=== PATIENT | female | born 1995 | race Caucasian/White ===

== ENCOUNTER 2016-10-01 13:16 | Emergency (ER) | payer BC, OTHER ==
[2016-10-01 13:21] VITALS: BP 122/61
--- NOTE | 2016-10-01 13:52 | RAD ---
INDICATION: Head injury, headache. COMPARISON: There are no prior studies available for comparison. TECHNIQUE: Contiguous axial sections of the brain were obtained from the skull base to the vertex without contrast. FINDINGS: The ventricles, cisterns and sulci are within normal limits. No significant focal abnormality or mass effect is seen. There is no evidence for hemorrhage. No significant focal osseous abnormality is seen. The visualized portion of the paranasal sinuses and mastoid air cells appear clear. IMPRESSION: NO EVIDENCE FOR ACUTE INTRACRANIAL ABNORMALITY.
--- NOTE | 2016-10-01 13:58 | RAD ---
INDICATION: Trauma. COMPARISON: There are no prior studies available for comparison. TECHNIQUE: Contiguous axial sections were obtained from the skull base through the T2 vertebra. Images were reconstructed in the sagittal and coronal planes. FINDINGS: There is straightening of the cervical spine with loss of the normal cervical lordosis. No prevertebral soft tissue swelling or fracture is seen. Disc spaces appear maintained. There is no evidence for spinal canal or neural foraminal narrowing. IMPRESSION: STRAIGHTENING OF THE CERVICAL SPINE, NO EVIDENCE FOR FRACTURE OR SUBLUXATION.
--- NOTE | 2016-10-01 14:51 | ED ---
Head Injury - HPI Summary HPI Summary: Patient slipped on a wet floor four days ago and fell backwards striking her head on the floor. She did not loose consciousness, vomit, have amnesia or neck pain. 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 Unfortunately they did not, so she went to [facility] for evaluation and was referred to the ED due to bruising to the back of her head with the nausea and headaches. She denies vision changes or neurological deficits, but has headaches after several hours of reading. - History Of Current Complaint Chief Complaint: EDHeadInjury Stated Complaint: HEAD INJURY Time Seen by Provider: 10/01/16 14:04 Hx Obtained From: Patient Hx Last Menstrual Period: no periods d/t control Mechanism Of Injury: Fall From A Standing Position Onset/Duration: Started Days Ago - 4, Traumatic, Still Present Onset of Pain: Immediate Severity Currently: Moderate Severity Initially: Moderate Pain Intensity: 4 Location of Head Injury: Occipital Character: Dull, Aching Aggravating Factor(s): Other: - reading Alleviating Factor(s): Rest Associated Signs And Symptoms: Nausea, Headache - Allergies/Home Medications Allergies/Adverse Reactions: Allergies Allergy/AdvReac Type Severity Reaction Status Date / Time Acetaminophen [From Vicodin] Allergy Intermediate Vomiting Verified 10/01/16 13: 18 Hydrocodone [From Vicodin] Allergy Intermediate Vomiting Verified 10/01/16 13:18 Latex Allergy Intermediate Swelling Verified 10/01/16 13:18 Of Face,Lips,& Throat PMH/Surg Hx/FS Hx/Imm Hx Previously Healthy: Yes Endocrine/Hematology History: Denies: Hx Diabetes, Hx Thyroid Disease Cardiovascular History: Denies: Hx Hypertension Respiratory History: Denies: Hx Asthma, Hx Chronic Obstructive Pulmonary Disease (COPD) GI History: Denies: Hx Ulcer - Surgical History Surgery Procedure, Year, and Place: wisdom teeth Infectious Disease History: No Infectious Disease History: Denies: Hx Clostridium Difficile, Hx Hepatitis, Hx Human Immunodeficiency Virus (HIV), Hx of Known/Suspected MRSA, Hx Shingles, Hx Tuberculosis, Hx Known/ Suspected VRE, Traveled Outside the [place] in Last 30 Days - Family History Known Family History: Positive: None - Social History Occupation: Student Lives: Alone Alcohol Use: Occasionally Substance Use Type: Reports: None Smoking Status (MU): Never Smoked Tobacco Review of Systems Negative: Fever Negative: Photophobia, Blurred Vision, Diplopia Negative: Ear Ache Positive: Headache. Negative: Weakness, Paresthesia, Numbness All Other Systems Reviewed And Are Negative: Yes Physical Exam Triage Information Reviewed: Yes Vital Signs On Initial Exam: Initial Vitals Temp Pulse Resp BP Pulse Ox 98.3 F 77 18 122/61 100 10/01/16 13:19 10/01/16 13:19 10/01/16 13:19 10/01/16 13:19 10/01/16 13:19 Vital Signs Reviewed: Yes Appearance: Positive: Well-Appearing, No Pain Distress, Thin Skin: Positive: Warm, Skin Color Reflects Adequate Perfusion, Dry, Soft Head/Face: Positive: Normal Head/Face Inspection Eyes: Positive: EOMI, VIVIANA, Conjunctiva Clear ENT: Positive: Hearing grossly normal, Pharynx normal, TMs normal Neck: Positive: Supple, Nontender, No Lymphadenopathy Respiratory/Lung Sounds: Positive: Breath Sounds Present Cardiovascular: Positive: RRR Musculoskeletal: Negative: Edema Left, Edema Right Neurological: Positive: Sensory/Motor Intact, Alert, Oriented to Person Place, Time, CN Intact II-III, NV Bundle Intact Distally, Normal Gait Psychiatric: Positive: Affect/Mood Appropriate AVPU Assessment: Alert Diagnostics - Vital Signs Vital Signs Temp Pulse Resp BP Pulse Ox 10/01/16 13:19 98.3 F 77 18 122/61 100 - Laboratory Lab Statement: Any lab studies that have been ordered have been reviewed, and results considered in the medical decision making process. - CT No standard instances CT Interpretation: No Acute Changes CT Interpretation Completed By: Radiologist Head Injury Course/Dx - Diagnoses Differential Diagnosis/HQI/PQRI: Cerebral Contusion, Cervical Sprain, Contusion , Hematoma, Laceration, Skull Fracture Provider Diagnoses: Head injury Discharge - Discharge Plan Condition: Stable Disposition: HOME Prescriptions: Ondansetron ODT TAB* [Zofran 4 MG Odt TAB*] 4 mg PO Q6H PRN #16 tab.odt PRN Reason: Nausea Patient Education Materials: Head Injury (ED) Forms: *School Release Referrals: [facility] [Primary Care Provider] - Additional Instructions: Please follow-up as needed with your regular provider.
== END 2016-10-01 14:49 | disposition home or self-care (01) ==
LOC: ED 13:16
DX: S09.90XA Unspecified injury of head, initial encounter (principal); W01.0XXA Fall on same level from slipping, tripping and stumbling without subsequent striking against object, initial encounter; Y92.9 Unspecified place or not applicable; Z88.5 Allergy status to narcotic agent
CPT/HCPCS: 70450; 72125; 99281

== ENCOUNTER 2016-10-07 15:43 | Emergency (ER) | payer BC ==
--- NOTE | 2016-10-07 17:07 | RAD ---
HISTORY: Left flank pain COMPARISONS: None relevant TECHNIQUE: Multiple transverse and longitudinal ultrasound images were obtained of the left kidney using grayscale and color Doppler imaging. FINDINGS: RIGHT KIDNEY: No images are submitted of the right kidney. LEFT KIDNEY: The left kidney is normal in shape, size, contour, and echogenicity. There is no hydronephrosis or nephrolithiasis. The left kidney measures 11.3 x 9.4 x 4.1 cm. BLADDER: No images are submitted of the bladder. AORTA AND IVC: No images are submitted of the vasculature. RETROPERITONEUM: Unremarkable. OTHER: None. IMPRESSION: NO LEFT HYDRONEPHROSIS OR NEPHROLITHIASIS
[2016-10-07 17:16] LABS: Hematocrit 41 % (35-47); Hemoglobin 13.5 g/dl (12.0-16.0); Mean Corpuscular HGB Conc 33 g/dl (31-36); Mean Corpuscular Hemoglobin 29 pg (27-31); Mean Corpuscular Volume 88 fL (80-97); Mean Platelet Volume 9 um3 (7.4-10.4); Red Cell Distribution Width 13 % (10.5-15)
[2016-10-07 17:30] LABS: ALT 9 U/L (7-52); AST 19 U/L (13-39); Albumin 3.7 g/dL (3.2-5.2); Alkaline Phosphatase 72 U/L (34-104); Anion Gap 5 mmol/L (2-11); BUN/Creatinine Ratio 11.3 (8-20); Blood Urea Nitrogen 9 mg/dL (6-24); C Reactive Protein < 1.00 mg/L (< 5.00); CO2 Carbon Dioxide 26 mmol/L (22-32); Chloride 105 mmol/L (101-111); EGFR African American 115.4 (>60); EGFR Non-African American 89.7 (>60); Globulin 2.8 g/dL (2-4); Glucose 73 mg/dL (70-100); Lipase 21 U/L (11.0-82.0); Potassium 3.8 mmol/L (3.5-5.0); Sodium 136 mmol/L (133-145); Total Protein 6.5 g/dL (6.4-8.9)
[2016-10-07 18:37] LABS: Urine Bilirubin Negative (Negative); Urine Glucose Negative (Negative); Urine Nitrite Negative (Negative)
[2016-10-07] MEDS ORDERED: Sucralfate TAB* 1 GM PO ONE (19:05)
--- NOTE | 2016-10-07 19:30 | RAD ---
CLINICAL HISTORY: Left flank pain COMPARISON: April 29, 2014 TECHNIQUE: Multiple contiguous axial CT scans were obtained of the abdomen and pelvis, without intravenous contrast enhancement. Coronal and sagittal multiplanar reformations are submitted for review. Oral contrast was not administered. FINDINGS: The study is limited by the lack of intravenous contrast. This limits evaluation of the solid organs and vasculature. LUNG BASES: The lung bases are clear. LIVER: The liver is normal in shape, size, contour, and attenuation. BILE DUCTS: There is no intrahepatic or extrahepatic biliary dilatation. GALLBLADDER: The gallbladder is incompletely distended and is not well evaluated. PANCREAS: The pancreas is normal, without mass or ductal dilatation. SPLEEN: Normal in size and appearance. UPPER GI TRACT: Evaluation of the gastrointestinal tract is limited by incomplete gastric distention. The upper GI tract is unremarkable. SMALL BOWEL AND MESENTERY: The small bowel is normal in contour, course, and caliber. There is no obstruction or dilatation. COLON: The colon is normal in contour, course, caliber. There is no pericolonic inflammatory change. There is a tubular, vermiform, hollow viscus that is blind ending, and originates from the cecum, consistent with a normal appendix. There is no periappendiceal inflammatory change. This is best seen on axial images 119 through 129 ADRENALS: Normal bilaterally. KIDNEYS: The kidneys are normal in shape, size, contour, and axis. There is no hydronephrosis or nephrolithiasis. BLADDER: The bladder is smooth in contour. PELVIC ORGANS: The uterus and adnexa are grossly normal for technique. There is a small amount of fluid within the pelvic cul-de-sac. There is a 2.8 cm left ovarian cyst, measuring simple fluid in attenuation. AORTA: The aorta is normal. IVC: Unremarkable LYMPH NODES: There is no lymphadenopathy by size criteria. ABDOMINAL WALL: There is no evidence for abdominal wall hernia. BONES AND SOFT TISSUES: The bones and soft tissues are unremarkable. OTHER: None IMPRESSION: 1. NO HYDRONEPHROSIS OR NEPHROLITHIASIS. 2. 2.8 CM LEFT OVARIAN CYST WITH A SMALL AMOUNT OF SIMPLE FLUID WITHIN THE PELVIC CUL-DE-SAC. THIS MAY BE PHYSIOLOGIC WITHIN A REPRODUCTIVE AGE FEMALE.
[2016-10-07] MEDS ORDERED: Lidocaine 2% VISCOUS* 15 ML UDC PO ONE (20:07)
[2016-10-07] MEDS ORDERED: Al Hydrox/Mg Hydrox/Simet LIQ* 30 ML UDC PO ONE (20:07)
[2016-10-07 21:01] VITALS: BP 103/65
--- NOTE | 2016-10-07 22:09 | ED ---
Arminda Holt Erika, scribed for Fidel Gibbons MD on 10/07/16 at 1626 . Abdominal Pain/Female - HPI Summary HPI Summary: Patient is a 21-year-old female presenting to the ED with a CC of left flank pain and LUQ pain. Patient reports that she suffered a concussion on 09/28/2016 , and has been nauseated since that date. On 10/02, patient developed epigastric pain that is aggravated by eating spicy foods, which pt believes is due to her GERD. She reports similar pains since then. Pt reports this pain is alleviated by Toradol, but her most recent dose was yesterday. Patient also reports pain in the left flank and LUQ intermittently, which is not aggravated by anything. She states a Hx kidney stones, but states this pain is not nearly as severe as when she had a kidney stone. Pt was seen at [facility] on 10/03 , and states UA showed calcium oxalate crystals but no blood. Repeat UA today was negative, per patient. Pt takes oral contraceptives, and reports she has not had a period since age 17. - History of Current Complaint Chief Complaint: EDAbdPain Stated Complaint: ABD PAIN Time Seen by Provider: 10/07/16 16:16 Hx Obtained From: Patient Hx Last Menstrual Period: no periods d/t control Onset/Duration: Gradual Onset, Lasting Days, Still Present Timing: Intermittent Episode Lasting - minutes/hours Severity Currently: Moderate Pain Intensity: 4 Pain Scale Used: 0-10 Numeric Location: Discrete At: LUQ, Flank - L Aggravating Factor(s): Other: - epigastric pain aggravated by spicy food Alleviating Factor(s): Other: - Toradol Associated Signs and Symptoms: Positive: Nausea Allergies/Adverse Reactions: Allergies Allergy/AdvReac Type Severity Reaction Status Date / Time Acetaminophen [From Vicodin] Allergy Intermediate Vomiting Verified 10/07/16 15: 45 Hydrocodone [From Vicodin] Allergy Intermediate Vomiting Verified 10/07/16 15:45 Latex Allergy Intermediate Swelling Verified 10/07/16 15:45 Of Face,Lips,& Throat Home Medications: Home Medications Sucralfate TAB* [Carafate*] 1 gm PO QID 10/07/16 [History Confirmed 10/07/16] PMH/Surg Hx/FS Hx/Imm Hx Endocrine/Hematology History: Denies: Hx Diabetes, Hx Thyroid Disease Cardiovascular History: Denies: Hx Hypertension Respiratory History: Denies: Hx Asthma, Hx Chronic Obstructive Pulmonary Disease (COPD) GI History: Denies: Hx Ulcer History: Reports: Hx Kidney Stones - Surgical History Surgery Procedure, Year, and Place: wisdom teeth Infectious Disease History: No Infectious Disease History: Denies: Hx Clostridium Difficile, Hx Hepatitis, Hx Human Immunodeficiency Virus (HIV), Hx of Known/Suspected MRSA, Hx Shingles, Hx Tuberculosis, Hx Known/ Suspected VRE, Traveled Outside the [place] in Last 30 Days - Family History Known Family History: Positive: Other - hyperlipidemia - Social History Alcohol Use: Occasionally Hx Substance Use: No Substance Use Type: Reports: None Hx Tobacco Use: No Smoking Status (MU): Never Smoked Tobacco Review of Systems Positive: Abdominal Pain, Nausea Positive: flank pain - L All Other Systems Reviewed And Are Negative: Yes Physical Exam Triage Information Reviewed: Yes Vital Signs On Initial Exam: Initial Vitals Temp Pulse Resp BP Pulse Ox 98.2 F 84 18 125/63 100 10/07/16 15:45 10/07/16 15:45 10/07/16 15:45 10/07/16 15:45 10/07/16 15:45 Vital Signs Reviewed: Yes Appearance: Positive: Well-Appearing, No Pain Distress Skin: Positive: Warm, Skin Color Reflects Adequate Perfusion, Dry Head/Face: Positive: Normal Head/Face Inspection Eyes: Positive: Normal ENT: Positive: Normal ENT inspection Neck: Positive: Supple, Nontender Respiratory/Lung Sounds: Positive: Clear to Auscultation, Breath Sounds Present Cardiovascular: Positive: RRR Abdomen Description: Positive: Soft, Other: - Mildly tender LUQ and epigastrium. Negative: CVA Tenderness (R), CVA Tenderness (L) Bowel Sounds: Positive: Present Musculoskeletal: Positive: Normal Neurological: Positive: Normal Psychiatric: Positive: Affect/Mood Appropriate Diagnostics - Vital Signs Vital Signs Temp Pulse Resp BP Pulse Ox 10/07/16 15:45 98.2 F 84 18 125/63 100 - Laboratory Lab Results: Lab Results 10/07/16 10/07/16 10/07/16 Range/Units 17:00 17:00 18:24 WBC 8.0 (3.5-10.8) 10^3/ul RBC 4.70 (4.0-5.4) 10^6/ul Hgb 13.5 (12.0-16.0) g/dl Hct 41 (35-47) % MCV 88 (80-97) fL MCH 29 (27-31) pg MCHC 33 (31-36) g/dl RDW 13 (10.5-15) % Plt Count 181 (150-450) 10^3/ul MPV 9 (7.4-10.4) um3 Neut % (Auto) 60.8 (38-83) % Lymph % (Auto) 31.7 (25-47) % [place] % (Auto) 4.5 (1-9) % Eos % (Auto) 2.4 (0-6) % Baso % (Auto) 0.6 (0-2) % Absolute Neuts (auto) 4.9 (1.5-7.7) 10^3/ul Absolute Lymphs (auto) 2.5 (1.0-4.8) 10^3/ul Absolute Monos (auto) 0.4 (0-0.8) 10^3/ul Absolute Eos (auto) 0.2 (0-0.6) 10^3/ul Absolute Basos (auto) 0 (0-0.2) 10^3/ul Absolute Nucleated RBC 0.01 10^3/ul Nucleated RBC % 0.1 Sodium 136 (133-145) mmol/L Potassium 3.8 (3.5-5.0) mmol/L Chloride 105 (101-111) mmol/L Carbon Dioxide 26 (22-32) mmol/L Anion Gap 5 (2-11) mmol/L BUN 9 (6-24) mg/dL Creatinine 0.80 (0.51-0.95) mg/dL Est GFR ( Amer) 115.4 (>60) Est GFR (Non-Af Amer) 89.7 (>60) BUN/Creatinine Ratio 11.3 (8-20) Glucose 73 (70-100) mg/dL Calcium 9.0 (8.6-10.3) mg/dL Total Bilirubin 0.40 (0.2-1.0) mg/dL AST 19 (13-39) U/L ALT 9 (7-52) U/L Alkaline Phosphatase 72 (34-104) U/L C-Reactive Protein < 1.00 (< 5.00) mg/L Total Protein 6.5 (6.4-8.9) g/dL Albumin 3.7 (3.2-5.2) g/dL Globulin 2.8 (2-4) g/dL Albumin/Globulin Ratio 1.3 (1-3) Lipase 21 (11.0-82.0) U/L Beta HCG, Quant < 0.60 mIU/mL Urine Color Yellow Urine Appearance Clear Urine pH 7.0 (5-9) Ur Specific [place] 1.017 (1.010-1.030) Urine Protein Negative (Negative) Urine Ketones Negative (Negative) Urine Blood Negative (Negative) Urine Nitrate Negative (Negative) Urine Bilirubin Negative (Negative) Urine Urobilinogen Negative (Negative) Ur Leukocyte Esterase Negative (Negative) Urine Glucose Negative (Negative) Result Diagrams: 10/07/16 17:00 10/07/16 17:00 Lab Statement: Any lab studies that have been ordered have been reviewed, and results considered in the medical decision making process. - CT CT A/P W/O CT Interpretation Completed By: Radiologist - IMPRESSION: 1. NO HYDRONEPHROSIS OR NEPHROLITHIASIS. 2. 2.8 CM LEFT OVARIAN CYST WITH A SMALL AMOUNT OF SIMPLE FLUID WITHIN THE PELVIC CUL-DE-SAC. THIS MAY BE PHYSIOLOGIC WITHIN A REPRODUCTIVE AGE FEMALE. - Ultrasound No standard instances Ultrasound Interpretation Completed By: Radiologist - Left renal US - IMPRESSION: NO LEFT HYDRONEPHROSIS OR NEPHROLITHIASIS Re-Evaluation - Re-Evaluation First Eval Re-Evaluation Time: 19:04 Change: Worse Comment: Discussed results with patient. Pt states pain has been worsening, and she requests a CT scan Second Eval Re-Evaluation Time: 19:58 Comment: Discussed results of CT scan with patient Abdominal Pain Fem Course/Dx - Course Course Of Treatment: Ms. Aparicio's W/U including noncontrast CT was only positive for a small ovarian cyst. She is nontoxic and I recommended F/U. - Diagnoses Provider Diagnoses: Abdominal pain Discharge - Discharge Plan Condition: Stable Disposition: HOME Patient Education Materials: Abdominal Pain (ED) Referrals: Nadege Gonzalez DO [Primary Care Provider] - [facility] [Medical Doctor] - Additional Instructions: Please follow up with your PCP. The documentation as recorded by the Arminda betancourt Erika accurately reflects the service I personally performed and the decisions made by me, Fidel Gibbons MD.
== END 2016-10-07 20:56 | disposition home or self-care (01) ==
LOC: ED 15:43
DX: R10.12 Left upper quadrant pain (principal); Z87.442 Personal history of urinary calculi; Z88.5 Allergy status to narcotic agent
CPT/HCPCS: 36415; 74176; 76775; 80053; 81003; 83690; 84702; 85025; 86140; 99283; A9270-GY